=== PATIENT | female | born 1990 | race Caucasian/White ===

== ENCOUNTER 2018-03-19 11:37 | Inpatient (IN) | payer MEDICAID, SELFPAY ==
[~2018-03-19 11:37] MED LIST: Bupivacaine HCl 0.5%/Epinephrine 1:200,000/PF 30 ml Vial ONE; ePHEDrine/0.9% NaCl/PF SYRINGE 50 mg/10 ml ONE
[2018-03-19] MEDS ORDERED: Ondansetron PF 4 MG/2 ML Vial IVP PRN (11:50)
[2018-03-19] MEDS ORDERED: Promethazine HCl 25 MG/ML VIAL IM PRN (11:50)
[2018-03-19] MEDS ORDERED: Betamet Acet/Betamet Na Ph 30 MG/5 ML VIAL IM SCH (12:00)
[2018-03-19] MEDS ORDERED: Betamet Acet/Betamet Na Ph 30 MG/5 ML VIAL ONE (12:08)
[2018-03-19 12:38] VITALS: BMI 30.5
[2018-03-19] MEDS ORDERED: Carboprost 250 MCG/ML AMP IM PRN (13:02)
[2018-03-19] MEDS ORDERED: Lidocaine 1% (PF) 30 ML VIAL SC PRN (13:02)
[2018-03-19] MEDS ORDERED: Methylergonovine 0.2 MG/ML VIAL IM PRN (13:02)
[2018-03-19] MEDS ORDERED: Misoprostol 200 MCG TAB PR PRN (13:02)
[2018-03-19] MEDS ORDERED: NS / Oxytocin 40 units/1000ml 1,000 ML IV PRN (13:02)
[2018-03-19] MEDS ORDERED: Diphenoxylate HCl/Atropine Tablet PO PRN (13:02)
[2018-03-19] MEDS ORDERED: Calcium Gluconate 4.6 MEQ in Sodium Chloride 0.9% 100 ML IVPB PRN (13:02)
[2018-03-19] MEDS ORDERED: Ibuprofen 800 MG TAB PO PRN (13:02)
[2018-03-19] MEDS: Lactated Ringer's 1,000 ML IV SCH ×2 (13:03→15:00)
[2018-03-19] MEDS ORDERED: Magnesium Sulfate 20 gm/500 ml 20 GM/500 ML BAG ONE (13:07)
[2018-03-19 13:09] LABS: Hemoglobin 11.5 g/dL (12.0-16.0); Mean Corpuscular HGB CONC 31.9 g/dL (32.0-36.0); Mean Corpuscular Hemoglobin 28.6 pg (27.0-31.0); Mean Corpuscular Volume 89.5 fL (78.0-98.0); Mean Platelet Volume 10.7 fL (7.4-10.4); Platelet Count 202 thou/uL (130-400); RBC Distribution Width 12.1 % (11.5-14.5); Red Blood Cell (RBC) Count 4.04 mill/uL (4.20-5.40); White Blood Cell (WBC) Count 9.1 thou/uL (4.8-10.8)
[2018-03-19] MEDS ORDERED: Penicillin G Potassium 5 MILL.UNITS VIAL ONE (13:10)
[2018-03-19] MEDS ORDERED: Penicillin G Potassium 5 MILL.UNITS in Sodium Chloride 0.9% 100 ML IVPB SCH (13:15)
[2018-03-19] MEDS ORDERED: Magnesium Sulfate 20 GM/WATER 500 ML BAG IVPB SCH (13:15)
[2018-03-19 13:23] LABS: ALT (SGPT) 232 U/L (8-55); AST (SGOT) 133 U/L (5-34); Albumin 3.2 g/dL (3.5-5.0); Alkaline Phosphatase 172 U/L (40-150); Anion Gap 13 mmol/L (10-20); BUN (Urea Nitrogen) 8 mg/dL (7.0-18.7); Bilirubin, Total 0.6 mg/dL (0.2-1.2); Calc. Creatinine Clearance 163 mL/min (70-130); Calcium 8.8 mg/dL (7.8-10.44); Carbon Dioxide 19 mmol/L (22-29); Chloride 109 mmol/L (98-107); Estimated GFR-MDRD Greater than 90; Globulin 3.4 g/dL (2.4-3.5); Glucose 72 mg/dL (70-105); Potassium 4.4 mmol/L (3.5-5.1); Protein, Total 6.6 g/dL (6.0-8.3); Sodium 137 mmol/L (136-145)
[2018-03-19 13:38] LABS: Syphilis Antibody Nonreactive (Nonreactive); Syphilis Antibody Index 0.04 S/CO (<1.00 Non-Reactive)
[2018-03-19 13:39] LABS: HBSAg Index 0.17 S/CO (0-0.99); HIV 1/2 INDEX 0.12 S/CO (<1.00)
[2018-03-19 13:45] LABS: HIV (1/2) Antibody/Antigen NonReactive (NonReactive); Hep B Surf Ag NonReactive S/CO (NonReactive)
[2018-03-19 14:48] LABS: Amphetamine Not Detected (NotDetected); Barbiturates Screen Not Detected (NotDetected); Benzodiazepine Screen Not Detected (NotDetected); Cocaine Metabolite Screen Not Detected (NotDetected); Medtox Control Line Valid? VALID (VALID); Medtox Reader # READER 1; Methadone Not Detected (NotDetected); Methamphetamine Not Detected (NotDetected); Opiate Screen Not Detected (NotDetected); Oxycodone Screen Not Detected (NotDetected); Phencyclidine (PCP) Not Detected (NotDetected); THC/Cannabinoid Screen Not Detected (NotDetected); Tricyclic Screen Not Detected (NotDetected)
[2018-03-19] MEDS: Penicillin G 2.5 MILL.units 2.5 MILL.UNITS in Premix Bag 1 BAG IVPB SCH ×2 (17:19→21:33)
[2018-03-19] MEDS ORDERED: Butorphanol Tartrate 1 MG/ML VIAL ONE ×3 (17:52→23:43)
[2018-03-19] MEDS ORDERED: Butorphanol Tartrate 1 MG/ML VIAL SLOW IVP PRN (17:54)
--- NOTE | 2018-03-19 17:57 | PDOC.LDHP ---
Labor and Delivery H&P HPI: patient arrived at [facility] for evaluation of itching that started about a week ago. It has been coming and going, worse at night usually and in the morning. the itching has progressed from her forearms, to the abd, upper thighs and now to her hands and feet. She denies RUQ pain. She has not had any care during this or during her last and delivery. Current gestational age (weeks): 33 (and 5 days by LMP c/w 3rd trimester US today) Due date: 05/02/18 Dating criteria: last menstrual period (verfired by 3rd trimester US.) Grav: 3 Para: 2 OB History Details: 8lb+ 8lb + no care, unassisted home . and 2018 - current gestation Current complications: mono/di twins Abnormal US findings: Yes (mono di twins, velamentous cord insertion. tachycardia) Current medications: pre- vitamins Previous surgical history: other (wisdom teeth extraction) Allergies/Adverse Reactions: Allergies Allergy/AdvReac Type Severity Reaction Status Date / Time hydrocodone Allergy Verified 03/19/18 12:27 Social history: none - Physical Exam Vital signs reviewed and normal: yes Abnormal vital signs: tqachycardia General: NAD Heart: RRR Lungs: CTAB Abdomen: gravid Extremeties: no edema FHT: category 1 [place] contractions every: q2-5min - Vaginal Exam cm dilated: 5 Effacement: 90% Station: 0 - OB Labs Blood type: A RH: positive Antibody Screen: negative HIV: negative RPR: negative HEPSAg: negative 1 hour GCT: unknown GBS: unknown Urine drug screen: negative - Assessment mono meliton twins, velamentous cord insertion. tachycardia R.o cholestatsis - Plan Plan: admit to L&D (Steriods for mag for tocolysis antibiotics for GBS unknown Co - managing with Dr. Kulkarni who will attend the delivery. )
[2018-03-19] MEDS: Magnesium Sulfate 20 gm/500 ml 20 GM/500 ML BAG IVPB SCH (21:19)
[2018-03-19 23:22] LABS: Bilirubin Negative (Negative); Blood, Urine Negative (Negative); Clarity CLEAR (Clear); Glucose, Urine (Dipstick) Negative (Negative); Leukocyte Negative (Negative); Nitrite Negative (Negative); Protein, Urine (Dipstick) Negative (Neg-Trace); Specific Gravity, Urine 1.012 (1.002-1.036)
[2018-03-19 23:25] LABS: Bacteria/HPF None Seen HPF (None Seen); Hyaline Casts/LPF 0-3 HYALINE CAST LPF (0-3 Hyaline); RBC/HPF 0-3 HPF (0-3); Squamous Epithelial None Seen HPF (0-3); WBC/HPF None Seen HPF (0-3)
--- NOTE | 2018-03-19 23:43 | PDOC.LDPN ---
Labor & Delivery Progress Note - Subjective Subjective: comfortable (intermitent left sided flank pain. ) - Objective Vital signs reviewed and normal: yes General: resting Uterine fundus: non tender Dilation: 5 Effacement: 90% Station: 0 FHT: category 1 [place] contractions every: q10 Other exam findings: Ua neg for blood - Assessment (1) Monochorionic diamniotic twin gestation in third trimester Code(s): O30.033 - TWIN , MONOCHORIONIC/DIAMNIOTIC, THIRD TRIMESTER Current Visit: Yes Status: Acute (2) Velamentous insertion of umbilical cord Code(s): O43.129 - VELAMENTOUS INSERTION OF UMBILICAL CORD, UNSP TRIMESTER Current Visit: Yes Status: Acute (3) Cholestasis during Code(s): O26.619 - LIVER AND BILIARY TRACT DISORD IN , UNSP TRIMESTER; K83.1 - OBSTRUCTION OF BILE DUCT Current Visit: Yes Status: Acute (4) Elevated liver enzymes Code(s): R74.8 - ABNORMAL LEVELS OF OTHER SERUM ENZYMES Current Visit: Yes Status: Acute (5) No care in current Code(s): O09.30 - SUPRVSN OF PREG W INSUFFICIENT ANTENAT CARE, UNSP TRIMESTER Current Visit: Yes Status: Acute Plan: continue plan of care (recheck cmp in am. ) -: Recheck CMP in the am.
[2018-03-20] MEDS: Penicillin G 2.5 MILL.units 2.5 MILL.UNITS in Premix Bag 1 BAG IVPB SCH ×4 (01:27→16:52)
[2018-03-20] MEDS ORDERED: Butorphanol Tartrate 1 MG/ML VIAL ONE (01:48)
[2018-03-20] MEDS ORDERED: Fentanyl 4 mcg/Bup 0.1% Cadd 100 ML ONE (01:54)
[2018-03-20] MEDS ORDERED: ePHEDrine/0.9% NaCl/PF SYRINGE 50 mg/10 ml SLOW IVP PRN (05:07)
[2018-03-20] MEDS ORDERED: Promethazine HCl 25 MG/ML VIAL IM PRN (05:07)
[2018-03-20] MEDS ORDERED: Acetaminophen 325 MG TAB PO PRN (05:07)
[2018-03-20] MEDS ORDERED: Lactated Ringer's 500 ML IV PRN (05:07)
[2018-03-20] MEDS ORDERED: diphenhydrAMINE 50 MG/ML VIAL IVP PRN (05:07)
[2018-03-20] MEDS ORDERED: Eucerin (Mineral Oil/Petrolatum,White) 30 gm Jar TOP PRN (05:07)
[2018-03-20] MEDS ORDERED: Naloxone HCl 0.4 mg/ml Vial IVP PRN ×2 (05:07)
[2018-03-20] MEDS ORDERED: Ondansetron PF 4 MG/2 ML Vial IVP PRN ×2 (05:07→15:00)
[2018-03-20] MEDS ORDERED: Fentanyl 4 mcg/Bupivacaine 0.1% Cassette 100 ML EPIDURAL SCH (05:15)
[2018-03-20] MEDS ORDERED: Communication Order-Pharmacy FS SCH (05:15)
[2018-03-20] MEDS ORDERED: Ondansetron PF 4 MG/2 ML Vial ONE (06:01)
[2018-03-20] MEDS: Lactated Ringer's 1,000 ML IV SCH ×2 (06:06→10:05)
[2018-03-20] MEDS: Magnesium Sulfate 20 gm/500 ml 20 GM/500 ML BAG IVPB SCH (07:41)
[2018-03-20 08:09] LABS: ALT (SGPT) 240 U/L (8-55); AST (SGOT) 151 U/L (5-34); Albumin 2.8 g/dL (3.5-5.0); Alkaline Phosphatase 160 U/L (40-150); Anion Gap 17 mmol/L (10-20); BUN (Urea Nitrogen) 8 mg/dL (7.0-18.7); Bilirubin, Total 0.9 mg/dL (0.2-1.2); Calc. Creatinine Clearance 156 mL/min (70-130); Calcium 6.9 mg/dL (7.8-10.44); Carbon Dioxide 14 mmol/L (22-29); Chloride 105 mmol/L (98-107); Estimated GFR-MDRD Greater than 90; Globulin 2.9 g/dL (2.4-3.5); Glucose 103 mg/dL (70-105); Potassium 4.6 mmol/L (3.5-5.1); Protein, Total 5.7 g/dL (6.0-8.3); Sodium 131 mmol/L (136-145)
--- NOTE | 2018-03-20 08:31 | PDOC.LDPN ---
Labor & Delivery Progress Note - Subjective Subjective: comfortable - Objective General: resting Dilation: 6 Effacement: 90% Station: -1 FHT: category 1 [employer] contractions every: irregular - Assessment (1) labor Code(s): O60.00 - LABOR WITHOUT DELIVERY, UNSPECIFIED TRIMESTER Current Visit: Yes Status: Acute (2) Elevated liver enzymes Code(s): R74.8 - ABNORMAL LEVELS OF OTHER SERUM ENZYMES Current Visit: Yes Status: Acute (3) Monochorionic diamniotic twin gestation in third trimester Code(s): O30.033 - TWIN , MONOCHORIONIC/DIAMNIOTIC, THIRD TRIMESTER Current Visit: Yes Status: Acute (4) No care in current Code(s): O09.30 - SUPRVSN OF PREG W INSUFFICIENT ANTENAT CARE, UNSP TRIMESTER Current Visit: Yes Status: Acute Plan: other -: Asumption of care A/P: 27yo P2 @ 33.6 with no PNC and new dx @ 33.5 of elevated LFTs w suspected cholestasis, labor and mono-di twins. Pt with magnesium on overnight for neuroprotection. Slight increase in LFTs overnight, itching continues, progression of labor noted as well. 2nd dose of celestone given this AM. Baby A cephalic. Discussed risk of vaginal vs CS delivery as well as increased risk of vaginal breech delivery. Pt is aware of approx 25% chance of CS of 2nd twin even in the even of of first twin. Discussed DC magnesium today with delivery eminent and safest delivery occurring with full team available during the day vs shift leader. Pt agrees to plan of care.
[2018-03-20] MEDS ORDERED: Betamet Acet/Betamet Na Ph 30 MG/5 ML VIAL IM SCH (08:45)
--- NOTE | 2018-03-20 12:45 | PDOC.LDPN ---
Labor & Delivery Progress Note - Subjective Subjective: comfortable - Objective Vital signs reviewed and normal: yes General: resting Uterine fundus: non tender Effacement: 90% Station: 1+ FHT: category 1 AROM: clear fluid - Assessment (1) labor Code(s): O60.00 - LABOR WITHOUT DELIVERY, UNSPECIFIED TRIMESTER Current Visit: Yes Status: Acute (2) Elevated liver enzymes Code(s): R74.8 - ABNORMAL LEVELS OF OTHER SERUM ENZYMES Current Visit: Yes Status: Acute (3) Monochorionic diamniotic twin gestation in third trimester Code(s): O30.033 - TWIN , MONOCHORIONIC/DIAMNIOTIC, THIRD TRIMESTER Current Visit: Yes Status: Acute (4) No care in current Code(s): O09.30 - SUPRVSN OF PREG W INSUFFICIENT ANTENAT CARE, UNSP TRIMESTER Current Visit: Yes Status: Acute Plan: other -: A/P: labor with mono/di twins in the setting of elevated LFTs w suspected cholestasis and no care. Labor progressing, AROM completed with clear fluid noted, NICU aware.
[2018-03-20] MEDS ORDERED: NS / Oxytocin 40 units/1000ml 1,000 ML ONE ×2 (13:28→14:32)
--- NOTE | 2018-03-20 13:57 | PDOC.OPDEL ---
OB Operative/Delivery Note Delivery Dr/Surgeon: Tye/SASHA Assist: Kelsea Pre-Delivery Diagnosis: active labor, other (mono/di twins, elevated liver enzymes) Procedure/Post Delivery Dx: spontaneous vaginal delivery (of twins) Weeks gestation: 33 Anesthesia: epidural - Findings A Sex: female Weight: 4 lb 12 oz - 1 min: 8 - 5 min: 9 B Sex: female Weight: 4 lb 7 oz - 1 min: 8 - 5 min: 8 - Additional Findings/Plan Placenta delivered: spontaneous Estimated blood loss: 500ml Compilations/Other Findings: mono/di twins delivered from vertex, AROM of B after of A, velamentous cord insertion of noted Post delivery plan: routine recovery
[2018-03-20] MEDS ORDERED: Methylergonovine 0.2 MG/ML VIAL ONE (14:42)
[2018-03-20] MEDS ORDERED: Bisacodyl 10 MG SUPP PR PRN (15:00)
[2018-03-20] MEDS ORDERED: Lanolin Ointment 7 GM TUBE TOP PRN (15:00)
[2018-03-20] MEDS ORDERED: Benzocaine/Menthol 20-0.5% 60 ML CAN TOP PRN (15:00)
[2018-03-20] MEDS ORDERED: Preparation H Ointment 28 GM TUBE PR PRN (15:00)
[2018-03-20] MEDS ORDERED: NS / Oxytocin 40 units/1000ml 1,000 ML IV SCH (15:00)
[2018-03-20] MEDS ORDERED: Milk Of Magnesia 30 ML UDCUP PO PRN (15:00)
[2018-03-20] MEDS: Ferrous Sulfate 325 MG TAB PO SCH (18:02)
[2018-03-20] MEDS: Ibuprofen 800 MG TAB PO SCH (21:17)
[2018-03-20] MEDS: Docusate Calcium (SURFAK) 240 MG CAP PO SCH (21:58)
[2018-03-21] MEDS: Ibuprofen 800 MG TAB PO SCH ×3 (05:23→20:38)
[2018-03-21] MEDS ORDERED: Adacel (T-DAP) 0.5 ML VIAL IM ONE (09:00)
[2018-03-21] MEDS ORDERED: Measles/Mumps/Rubella 10 MCG/0.5 ML VIAL SC ONE (09:00)
[2018-03-21] MEDS: Ferrous Sulfate 325 MG TAB PO SCH ×2 (09:41→17:38)
[2018-03-21] MEDS: Docusate Calcium (SURFAK) 240 MG CAP PO SCH ×2 (09:42→20:38)
[2018-03-21] MEDS: Prenatal Vitamin 1 TAB PO SCH (09:43)
--- NOTE | 2018-03-21 11:26 | PDOC.PP ---
Post Progress Note Post Day #: 1 Subjective: Pt and her in NICU w babies doing bedside skin to skin and nursing. Babies doing well per mom. Pt reports min lochia. Pt does report NYE since last night. Right now NYE is frontal and mild. Not sure if it positional or not. PO intake tolerated: yes Flatus: yes Ambulation: yes Vital Signs (12 hours) Temp Pulse Resp BP BP Pulse Ox 03/21/18 08:00 98.4 F 62 16 107/58 L 98 03/21/18 05:20 98.2 F 98 18 107/64 03/21/18 00:00 97.4 F L 79 16 103/66 Weight Weight 178 lb - Physical Examination General: NAD (sitting in chair nursing baby) Respiratory: non-labored breathing Skin: no rash Neurological: no gross focal deficits Psychiatric: A&Ox3, normal affect Result Diagrams: 03/19/18 12:20 03/20/18 07:44 Additional Labs: Post Labs Blood Type A POSITIVE 03/19/18 12:20 Hep Bs Antigen NonReactive S/CO (NonReactive) 03/19/18 12:47 Rubella IgG Antibody Less than 0.90 index (Immune >0.99) L 03/19/18 12:47 (1) labor Code(s): O60.00 - LABOR WITHOUT DELIVERY, UNSPECIFIED TRIMESTER Status : Acute (2) Elevated liver enzymes Code(s): R74.8 - ABNORMAL LEVELS OF OTHER SERUM ENZYMES Status: Acute (3) Monochorionic diamniotic twin gestation in third trimester Code(s): O30.033 - TWIN , MONOCHORIONIC/DIAMNIOTIC, THIRD TRIMESTER Status: Acute (4) No care in current Code(s): O09.30 - SUPRVSN OF PREG W INSUFFICIENT ANTENAT CARE, UNSP TRIMESTER Status: Acute - Assessment/Plan A/P: PPD1 doing well, sp PTSVD of ceph/ceph mono/di twins @ 33.6 weeks. PNC complicated by elevated liver enzymes with cholestasis suspected but not confirmed, and labor in the setting of no care. Pt aware of plan to repeat LFTs today approx 24 hrs after delivery. Will monitor NYE and notify anesthesia if she feels it is positional with rest later this afternoon.
[2018-03-21 14:29] LABS: Hemoglobin 9.4 g/dL (12.0-16.0); Mean Corpuscular HGB CONC 32.3 g/dL (32.0-36.0); Mean Corpuscular Hemoglobin 29.4 pg (27.0-31.0); Mean Corpuscular Volume 91.2 fL (78.0-98.0); Mean Platelet Volume 10.3 fL (7.4-10.4); Platelet Count 164 thou/uL (130-400); RBC Distribution Width 12.1 % (11.5-14.5); Red Blood Cell (RBC) Count 3.19 mill/uL (4.20-5.40); White Blood Cell (WBC) Count 12.1 thou/uL (4.8-10.8)
[2018-03-21 15:30] LABS: ALT (SGPT) 180 U/L (8-55); AST (SGOT) 82 U/L (5-34); Albumin 2.4 g/dL (3.5-5.0); Alkaline Phosphatase 120 U/L (40-150); Anion Gap 5 mmol/L (10-20); BUN (Urea Nitrogen) 12 mg/dL (7.0-18.7); Bilirubin, Total 0.3 mg/dL (0.2-1.2); Calc. Creatinine Clearance 177 mL/min (70-130); Calcium 8.1 mg/dL (7.8-10.44); Carbon Dioxide 27 mmol/L (22-29); Chloride 111 mmol/L (98-107); Estimated GFR-MDRD Greater than 90; Globulin 2.5 g/dL (2.4-3.5); Glucose 113 mg/dL (70-105); Potassium 3.9 mmol/L (3.5-5.1); Protein, Total 4.9 g/dL (6.0-8.3); Sodium 139 mmol/L (136-145)
[2018-03-21] MEDS: diphenhydrAMINE 25 MG CAP PO PRN (20:38)
[2018-03-21] MEDS ORDERED: Ketorolac Tromethamine 10 MG TAB PO PRN ×2 (21:14→21:23)
[2018-03-21] MEDS ORDERED: Metoclopramide HCl 10 MG TAB PO PRN (21:14)
[2018-03-21] MEDS ORDERED: diphenhydrAMINE 25 MG CAP PO PRN (21:14)
[2018-03-22] MEDS: Acetaminophen 500 MG TAB PO PRN (02:28)
[2018-03-22] MEDS ORDERED: Metoclopramide HCl 10 MG TAB PO PRN (05:30)
--- NOTE | 2018-03-22 08:17 | PDOC.PP ---
Post Progress Note Post Day #: 2 Subjective: NYE has progressed since yesterday, radiates across the top of her head, uncomfortable regardless of position PO intake tolerated: yes Flatus: yes Ambulation: yes Vital Signs (12 hours) Temp Pulse Resp BP BP Pulse Ox 03/22/18 04:45 97.5 F L 58 L 18 116/61 98 03/21/18 20:35 97.6 F 73 18 120/84 98 Weight Weight 178 lb - Physical Examination General: NAD (laying in bed w O2 on) Respiratory: non-labored breathing Abdominal: no distention Skin: no rash Psychiatric: A&Ox3, normal affect Result Diagrams: 03/21/18 14:21 03/21/18 14:21 Additional Labs: Post Labs Blood Type A POSITIVE 03/19/18 12:20 Hep Bs Antigen NonReactive S/CO (NonReactive) 03/19/18 12:47 Rubella IgG Antibody Less than 0.90 index (Immune >0.99) L 03/19/18 12:47 (1) labor Code(s): O60.00 - LABOR WITHOUT DELIVERY, UNSPECIFIED TRIMESTER Status : Acute (2) Elevated liver enzymes Code(s): R74.8 - ABNORMAL LEVELS OF OTHER SERUM ENZYMES Status: Acute (3) Monochorionic diamniotic twin gestation in third trimester Code(s): O30.033 - TWIN , MONOCHORIONIC/DIAMNIOTIC, THIRD TRIMESTER Status: Acute (4) No care in current Code(s): O09.30 - SUPRVSN OF PREG W INSUFFICIENT ANTENAT CARE, UNSP TRIMESTER Status: Acute - Assessment/Plan PPD2 doing well w exception of progressing headache, not relieved yesterday w reglan and rest. Hx of migranes controlled w sleep and OTC meds. Suspect atypical migraine vs atypical epidural NYE. Sumatriptan ordered and anesthesia consult placed.
[2018-03-22] MEDS: SUMAtriptan Succinate 25 MG TAB PO PRN ×2 (08:29→10:23)
[2018-03-22] MEDS: Prenatal Vitamin 1 TAB PO SCH (09:19)
[2018-03-22] MEDS: Ferrous Sulfate 325 MG TAB PO SCH ×2 (09:20→17:37)
[2018-03-22] MEDS: Docusate Calcium (SURFAK) 240 MG CAP PO SCH ×2 (09:20→22:02)
[2018-03-23] MEDS: diphenhydrAMINE 25 MG CAP PO PRN (04:48)
[2018-03-23] MEDS: Acetaminophen 500 MG TAB PO PRN (04:48)
[2018-03-23 08:13] VITALS: BP 102/51; TEMP 98
[2018-03-23] MEDS: Ferrous Sulfate 325 MG TAB PO SCH (08:47)
[2018-03-23] MEDS: Docusate Calcium (SURFAK) 240 MG CAP PO SCH (08:48)
[2018-03-23] MEDS: Prenatal Vitamin 1 TAB PO SCH (08:48)
== END 2018-03-23 14:35 | disposition home or self-care (01) | DRG 805 ==
LOC: L&D 11:37 → 3SW 03-20 18:24
PROVIDERS: ADMIT Student in an Organized Health Care Education/Training Program; ATTEND Student in an Organized Health Care Education/Training Program
PROC: 10E0XZZ Delivery of Products of Conception, External Approach (ICD-10-PCS; principal; 2018-03-20)
PROC: 10907ZC Drainage of Amniotic Fluid, Therapeutic from Products of Conception, Via Natural or Artificial Opening (ICD-10-PCS; 2018-03-20)
DX: O30.033 Twin pregnancy, monochorionic/diamniotic, third trimester (principal); O60.14X2 Preterm labor third trimester with preterm delivery third trimester, fetus 2; Z37.2 Twins, both liveborn; O60.14X1 Preterm labor third trimester with preterm delivery third trimester, fetus 1; K83.1 Obstruction of bile duct; O26.62 Liver and biliary tract disorders in childbirth; Z3A.33 33 weeks gestation of pregnancy; O26.893 Other specified pregnancy related conditions, third trimester; O76 Abnormality in fetal heart rate and rhythm complicating labor and delivery; O43.123 Velamentous insertion of umbilical cord, third trimester
CPT/HCPCS: 36415; 51702; 76815; 80053; 80306; 81001; 82239; 85027; 86762; 86780; 86850; 86900; 86901; 87340; 87389; J0595; J0670; J0702; J2210; J2405; J2540; J3475